=== PATIENT | male | born 1975 | race African-American/Black ===

== ENCOUNTER 2016-10-22 09:12 | Emergency (ER) | payer MEDICAID, MEDICARE, OTHER ==
[2016-10-22] MEDS ORDERED: OLANZAPINE 5 MG TAB.RAPDIS PO ONE (09:35)
[2016-10-22] MEDS ORDERED: ZIPRASIDONE HCL 20 MG CAPSULE PO ONE (09:49)
[2016-10-22] MEDS ORDERED: ZIPRASIDONE MESYLATE INJ/PF 20 MG SDV IM ONE ×2 (11:02→21:50)
[2016-10-22 11:22] LABS: ABSOLUTE BASOPHILS # (AUTO) 0.1 10^3/uL (0.0-0.2); ABSOLUTE EOSINOPHILS # (AUTO) 0.5 10^3/uL (0.0-0.6); ABSOLUTE LYMPHOCYTES (AUTO) 2.5 10^3/uL (0.5-4.7); ABSOLUTE MONOCYTES (AUTO) 0.8 10^3/uL (0.1-1.4); ABSOLUTE NEUT (AUTO) 6.3 10^3/uL (1.7-8.2); BASOPHILS % (AUTO) 0.6 % (0-2); EOSINOPHILS % (AUTO) 4.7 % (0-6); HEMATOCRIT 38.7 % (37.9-51.0); HEMOGLOBIN 13.1 g/dL (13.5-17.0); HGB HCT DIFFERENCE 0.6; LYMPHOCYTES % (AUTO) 24.8 % (13-45); MEAN CORPUSCULAR HEMOGLOBIN 31.1 pg (27.0-33.4); MEAN CORPUSCULAR HGB CONC 33.9 g/dL (32.0-36.0); MEAN CORPUSCULAR VOLUME 92 fl (80-97); MONOCYTES % (AUTO) 7.6 % (3-13); RED BLOOD COUNT 4.22 10^6/uL (4.35-5.55); SEGMENTED NEUTROPHILS % (AUTO) 62.3 % (42-78); WHITE BLOOD COUNT 10.1 10^3/uL (4.0-10.5)
[2016-10-22 11:41] LABS: ALANINE AMINOTRANSFERASE 36 U/L (21-72); ALBUMIN 3.7 g/dL (3.5-5.0); ALKALINE PHOSPHATASE 79 U/L (38-126); ANION GAP 10 (5-19); ASPARTATE AMINO TRANSFERASE 30 U/L (17-59); BILIRUBIN,DIRECT 0.2 mg/dL (0.0-0.4); BILIRUBIN,TOTAL 0.3 mg/dL (0.2-1.3); BLOOD UREA NITROGEN 4 mg/dL (7-20); CALCIUM 9.2 mg/dL (8.4-10.2); CARBON DIOXIDE 23 mmol/L (22-30); CHLORIDE 111 mmol/L (98-107); GLUCOSE 102 mg/dL (75-110); POTASSIUM 4.2 mmol/L (3.6-5.0); SODIUM 143.5 mmol/L (137-145)
[2016-10-22 11:42] LABS: ALCOHOL < 10 mg/dL (NONE DETECTED)
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
[2016-10-22] MEDS ORDERED: ONDANSETRON 4 MG TAB.RAPDIS PO ONE (12:30)
--- NOTE | 2016-10-22 15:36 | ER Document Report ---
ED General - General Chief Complaint: Psych Problem Stated Complaint: IVC W/PAPERS TRAVEL OUTSIDE OF THE [place] IN LAST 30 DAYS: No - HPI Patient complains to provider of: psychiatric evaluation Notes: Patient coming in on IVC paper work for psychiatric evaluation. Patient currently has a history of bipolar disease for any a. A shukla looks to be in acute psychosis. Patient has obvious blood around his lips upon my evaluation however is not very cooperative with examination. Patient states the room lights for me to evaluate his babies as that he is . Patient is unaware of any medications that he takes but does state he is allergic to Haldol patient otherwise looks to be in no obvious distress - Related Data Allergies/Adverse Reactions: haloperidol [From Haldol] Allergy (Verified 01/14/14 19:56) haloperidol lactate [From Haldol] Allergy (Verified 01/14/14 19:56) risperidone [From Risperdal] Allergy (Verified 01/14/14 19:58) Past Medical History - Social History Smoking Status: Unknown if Ever Smoked Family History: Reviewed & Not Pertinent - Past Medical History Cardiac Medical History: Reports: Hx Hypertension Psychiatric Medical History: Reports: Hx Bipolar Disorder, Hx Schizophrenia Past Surgical History: Reports: Hx Orthopedic Surgery - back surgery - Immunizations Hx Diphtheria, Pertussis, Tetanus Vaccination: No Review of Systems - Review of Systems -: Yes ROS unobtainable due to patient's medical condition - Acute psychosis Physical Exam - Vital signs Vitals: Temp Pulse Resp BP Pulse Ox 98.1 F 84 20 126/91 H 98 10/22/16 14:59 10/22/16 14:59 10/22/16 14:59 10/22/16 14:59 10/22/16 14:59 Interpretation: Normal - General General appearance: Appears well, Alert - HEENT Head: Normocephalic, Atraumatic Eyes: Normal Pupils: PERRL Notes: Ration has dried blood around the lips and teeth. Patient will stick out his tongue which doesn't bloodied is no signs of any active bleeding however patient is not cooperative with examination and refuses to let me look into his oral cavity. - Respiratory Respiratory status: No respiratory distress Chest status: Nontender Breath sounds: Normal Chest palpation: Normal - Cardiovascular Rhythm: Regular Heart sounds: Normal auscultation Murmur: No - Abdominal Inspection: Normal Distension: No distension Bowel sounds: Normal Tenderness: Nontender Organomegaly: No organomegaly - Back Back: Normal, Nontender - Extremities General upper extremity: Normal inspection, Nontender, Normal color, Normal ROM , Normal temperature General lower extremity: Normal inspection, Nontender, Normal color, Normal ROM , Normal temperature, Normal weight bearing. No: Elmira's sign - Neurological Neuro grossly intact: Yes Cognition: Normal Ashwin Coma Scale Eye Opening: Spontaneous Ashwin Coma Scale Verbal: Oriented Ashwin Coma Scale Motor: Obeys Commands Ashwin Coma Scale Total: 15 Speech: Normal Motor strength normal: LUE, RUE, LLE, RLE Sensory: Normal - Psychological Associated symptoms: Agitated, Anxious, Confused - Skin Skin Temperature: Warm Skin Moisture: Dry Skin Color: Normal Course - Re-evaluation Re-evalutation: 10/22/16 15:36 Patient lab work shows no clear etiology. Patient is medically cleared to be evaluated by psych. Patient did require a dose of Geodon to aid in his agitation. - Vital Signs Vital signs: Temp Pulse Resp BP Pulse Ox 98.1 F 84 20 126/91 H 98 10/22/16 14:59 10/22/16 14:59 10/22/16 14:59 10/22/16 14:59 10/22/16 14:59 - Laboratory Result Diagrams: 10/22/16 11:05 10/22/16 11:05 Laboratory results interpreted by me: 10/22/16 10/22/16 11:05 11:05 RBC 4.22 L Hgb 13.1 L RDW 15.0 H Chloride 111 H BUN 4 L Salicylates < 1.0 L Acetaminophen < 10 L Discharge - Discharge Clinical Impression: Acute psychosis Condition: Good Disposition: PSYCH HOSP/UNIT
--- NOTE | 2016-10-22 20:01 | EKG REPORT ---
SEVERITY:- NORMAL ECG - SINUS RHYTHM : Confirmed by: Steven Phelps MD 22-Oct-2016 19:59:31
[2016-10-22 20:28] LABS: APPEARANCE,URINE CLOUDY; BILIRUBIN,URINE NEGATIVE (NEGATIVE); GLUCOSE, URINE NEGATIVE (NEGATIVE); KETONES,URINE NEGATIVE (NEGATIVE); LEUKOCYTE ESTERASE,URINE NEGATIVE (NEGATIVE); NITRITE,URINE NEGATIVE (NEGATIVE); PROTEIN,URINE NEGATIVE (NEGATIVE); URINE SPECIFIC GRAVITY 1.004; UROBILINOGEN,URINE NEGATIVE mg/dL (<2.0)
[2016-10-22 20:38] LABS: URINE BARBITURATES SCREEN NEGATIVE; URINE METHADONE SCREEN NEGATIVE; URINE OPIATES LOW NEGATIVE; URINE PHENCYCLIDINE SCREEN NEGATIVE
[2016-10-22] MEDS ORDERED: BENZTROPINE MESYLATE INJ 2 MG/2 ML AMPULE IM ONE (21:50)
[2016-10-22] MEDS ORDERED: OLANZAPINE INJ/PF 10 MG SDV IM PRN (21:53)
[2016-10-23] MEDS ORDERED: LORAZEPAM 1 MG TABLET PO ONE (01:11)
--- NOTE | 2016-10-23 10:56 | ER Document Report ---
Doctor's Note Notes: 10/23/16 10:55 Rounds: Chart reviewed and patient interviewed. Patient is here primarily for substance abuse. He is under the care of [facility] area vital signs are all normal. Lab studies were normal except for his drug screen which was positive for marijuana, benzos, and cocaine. Patient appears to be medically stable for transfer or discharge. Mental health has assessed the patient feels he can be discharged to follow-up at [facility] tomorrow. Yamel Reed M.D.
[2016-10-23 11:11] VITALS: BP 111/80
== END 2016-10-23 11:18 | disposition home or self-care (01) ==
LOC: ER 09:12
DX: F20.9 Schizophrenia, unspecified (principal); F19.10 Other psychoactive substance abuse, uncomplicated; I10 Essential (primary) hypertension; Z88.8 Allergy status to other drugs, medicaments and biological substances
CPT/HCPCS: 93005; 99285; 96372; 36415; 80307 ×4; 85025; 80053; 81001; 93010; J0515; J3486; A9270